=== PATIENT | female | born 1950 | race Caucasian/White ===

== ENCOUNTER 2018-10-08 06:33 | Emergency (ER) | payer OTHER, BC ==
--- NOTE | 2018-10-08 07:27 | ER ---
Nurse's Notes [facility] Name: Julia Freed Age: 68 yrs Sex: Female : 1950 Arrival Date: 10/08/2018 Time: 06:35 Bed 7 Private MD: Devang Campbell V Diagnosis: Nondisplaced fracture of fourth metatarsal bone, right foot Presentation: 10/08 06:44 Presenting complaint: Patient states: Slipped on water and twisted right ankle approx tl2 12 hours ago. Slight swelling and continued pain to right foot and ankle. Transition of care: patient was not received from another setting of care. Onset of symptoms was October 07, 2018 at 18:00. Risk Assessment: Do you want to hurt yourself or someone else? Patient reports no desire to harm self or others. Initial Sepsis Screen: Does the patient meet any 2 criteria? No. Patient's initial sepsis screen is negative. Does the patient have a suspected source of infection? No. Patient's initial sepsis screen is negative. Care prior to arrival: None. 06:44 Method Of Arrival: Wheelchair tl2 06:44 Acuity: CK 4 tl2 Historical: - Allergies: 06:46 Sulfa (Sulfonamide Antibiotics); tl2 06:46 Sudafed; tl2 - Home Meds: 06:46 Imitrex Oral [Active]; Clonazepam Oral [Active]; Zoloft Oral [Active]; Lamictal Oral tl2 [Active]; Bupropion Oral [Active]; Synthroid Oral [Active]; Cytomel Oral [Active]; - PMHx: 06:47 Hypertension; tl2 06:47 Pancreatitis; Depression; tl2 - PSHx: 06:46 Cholecystectomy; Joint replacement; Hysterectomy; tl2 - Immunization history:: Adult Immunizations up to date. - Social history:: Smoking status: Patient/guardian denies using tobacco. - Ebola Screening: : No symptoms or risks identified at this time. Screenin:47 Abuse screen: Denies threats or abuse. Nutritional screening: No deficits noted. tl2 Tuberculosis screening: No symptoms or risk factors identified. Fall Risk Gait- Impaired (20 pts.). Assessment: 06:52 General: Appears comfortable, Behavior is calm, cooperative. Pain: Complains of pain in tr5 right ankle and lateral aspect of right foot Pain does not radiate. Pain currently is 6 out of 10 on a pain scale. Pain began 1 day ago. Neuro: Level of Consciousness is awake, alert, obeys commands, Oriented to person, place, time, Media Production Manager are equal bilaterally Moves all extremities. Gait is. Cardiovascular: Heart tones present Bruits absent Capillary refill < 3 seconds Pulses are all present. Edema is absent. Respiratory: Airway is patent Trachea midline Respiratory effort is even, unlabored, Respiratory pattern is regular, symmetrical, Breath sounds are clear bilaterally. GI: Abdomen is round Bowel sounds present X 4 quads. Abd is soft and non tender. : No signs and/or symptoms were reported regarding the genitourinary system. EENT: No signs and/or symptoms were reported regarding the EENT system. Derm: Skin is intact, is healthy with good turgor. Musculoskeletal: Capillary refill < 3 seconds, Range of motion: intact in all extremities. Vital Signs: 06:46 BP 149 / 75; Pulse 103; Resp 18; Pulse Ox 96% on R/A; Weight 81.65 kg; Height 5 ft. 10 tl2 in. (177.80 cm); Pain 4/10; 06:46 Body Mass Index 25.83 (81.65 kg, 177.80 cm) tl2 ED Course: 06:35 Patient arrived in ED. ag5 06:36 Devang Campbell MD is Private Physician. ag5 06:36 [facility] jr8 06:36 Adam Tenorio MD is Attending Physician. jr8 06:45 Triage completed. tl2 06:46 Arm band placed on right wrist. tl2 06:47 Patient has correct armband on for positive identification. Bed in low position. Call tl2 light in reach. Side rails up X 1. 06:49 Bill Thorpe, RACHID is Primary Nurse. tr5 06:59 X-ray completed. Portable x-ray completed in exam room. Patient tolerated procedure jb2 well. 07:00 XRAY Foot RIGHT 3 View In Process Unspecified. EDMS 07:24 Aristides Plascencia MD is Referral Physician. jr8 Administered Medications: No medications were administered Outcome: 07:25 Discharge ordered by . jr8 07:51 Patient left the ED. ph Signatures: Dispatcher [employer] EDMS Saurabh Bland2 Kyrie Ulloa PA PA jr8 Capri nKox, RACHID RN ph Mckenzie Nunez RN RN tl2 Lester Elmore5 Bill Thorpe RN RN tr5
--- NOTE | 2018-10-08 07:27 | EDPHYS ---
Physician Documentation [facility] Name: Julia Freed Age: 68 yrs Sex: Female : 1950 Arrival Date: 10/08/2018 Time: 06:35 Bed 7 Private MD: Devang Campbell V ED Physician Adam Tenorio HPI: 10/08 07:15 This 68 yrs old Female presents to ER via Wheelchair with complaints of Fall jr8 Injury, Foot Injury. 07:15 Details of fall: The patient fell from an upright position, while standing. Details of jr8 fall: The patient fell from an upright position, due to wet surface. Onset: The symptoms/episode began/occurred suddenly, last night, at 18:00. Associated injuries: The patient sustained lateral aspect of right foot, contusion. Severity of symptoms: At their worst the symptoms were mild, in the emergency department the symptoms are unchanged. The patient has not experienced similar symptoms in the past. The patient has not recently seen a physician. slipped on wet surface and rolled right foot inwards. Historical: - Allergies: 06:46 Sulfa (Sulfonamide Antibiotics); tl2 06:46 Sudafed; tl2 - Home Meds: 06:46 Imitrex Oral [Active]; Clonazepam Oral [Active]; Zoloft Oral [Active]; Lamictal Oral tl2 [Active]; Bupropion Oral [Active]; Synthroid Oral [Active]; Cytomel Oral [Active]; - PMHx: 06:47 Hypertension; tl2 06:47 Pancreatitis; Depression; tl2 - PSHx: 06:46 Cholecystectomy; Joint replacement; Hysterectomy; tl2 - Immunization history:: Adult Immunizations up to date. - Social history:: Smoking status: Patient/guardian denies using tobacco. - Ebola Screening: : No symptoms or risks identified at this time. ROS: 07:15 Constitutional: Negative for fever, chills, and weight loss, Eyes: Negative for injury, jr8 pain, redness, and discharge, ENT: Negative for injury, pain, and discharge, Neck: Negative for injury, pain, and swelling, Cardiovascular: Negative for chest pain, palpitations, and edema, Respiratory: Negative for shortness of breath, cough, wheezing, and pleuritic chest pain, Abdomen/GI: Negative for abdominal pain, nausea, vomiting, diarrhea, and constipation, Back: Negative for injury and pain, Skin: Negative for injury, rash, and discoloration, Neuro: Negative for headache, weakness, numbness, tingling, and seizure. 07:15 MS/extremity: Positive for injury or acute deformity, pain, Negative for laceration, paresthesias, puncture, tingling. Exam: 07:15 Constitutional: This is a well developed, well nourished patient who is awake, alert, jr8 and in no acute distress. Head/Face: Normocephalic, atraumatic. Eyes: Pupils equal round and reactive to light, extra-ocular motions intact. Lids and lashes normal. Conjunctiva and sclera are non-icteric and not injected. Cornea within normal limits. Periorbital areas with no swelling, redness, or edema. Neck: Trachea midline, no thyromegaly or masses palpated, and no cervical lymphadenopathy. Supple, full range of motion without nuchal rigidity, or vertebral point tenderness. No Meningismus. Cardiovascular: Regular rate and rhythm with a normal S1 and S2. No gallops, murmurs, or rubs. Normal PMI, no JVD. No pulse deficits. Respiratory: Lungs have equal breath sounds bilaterally, clear to auscultation and percussion. No rales, rhonchi or wheezes noted. No increased work of breathing, no retractions or nasal flaring. Abdomen/GI: Soft, non-tender, with normal bowel sounds. No distension or tympany. No guarding or rebound. No evidence of tenderness throughout. Back: No spinal tenderness. No costovertebral tenderness. Full range of motion. Skin: Warm, dry with normal turgor. Normal color with no rashes, no lesions, and no evidence of cellulitis. Neuro: Awake and alert, GCS 15, oriented to person, place, time, and situation. Cranial nerves II-XII grossly intact. Motor strength 5/5 in all extremities. Sensory grossly intact. Cerebellar exam normal. Normal gait. 07:15 Musculoskeletal/extremity: Extremities: grossly normal except: noted in the right foot: contusion, tenderness, ROM: intact in all extremities, Circulation is intact in all extremities. Pulses: noted to be 2+ in the right dorsalis pedis artery and left dorsalis pedis artery, Sensation intact. tenderness to lateral right foot, contusion to dorsal right foot over 3rd-5th metatarsals. Vital Signs: 06:46 BP 149 / 75; Pulse 103; Resp 18; Pulse Ox 96% on R/A; Weight 81.65 kg; Height 5 ft. 10 tl2 in. (177.80 cm); Pain 4/10; 06:46 Body Mass Index 25.83 (81.65 kg, 177.80 cm) tl2 Procedures: 07:23 Splinting: Splint applied to right foot using Ortho shoe. applied by nurse. Examined by jr8 id, post splint application: neurovascular intact, 2+ distal pulses palpable, brisk capillary refill noted, Patient tolerated well. MDM: 06:40 Patient medically screened. jr8 07:23 Data reviewed: vital signs, nurses notes, radiologic studies, plain films. Data jr8 interpreted: Pulse oximetry: on room air is 96 %. Interpretation: normal. Counseling: I had a detailed discussion with the patient and/or guardian regarding: the historical points, exam findings, and any diagnostic results supporting the discharge/admit diagnosis, radiology results, the need for outpatient follow up, a orthopedic surgeon, to return to the emergency department if symptoms worsen or persist or if there are any questions or concerns that arise at home. 10/08 06:47 Order name: XRAY Foot RIGHT 3 View jr8 10/08 07:15 Order name: Ortho shoe jr8 Administered Medications: No medications were administered Disposition: 19:04 Co-signature as Attending Physician, Adam Tenorio MD. betsy Disposition: 10/08/18 07:25 Discharged to Home. Impression: Nondisplaced fracture of fourth metatarsal bone, right foot. - Condition is Stable. - Discharge Instructions: Metatarsal Fracture. - Prescriptions for Ibuprofen 800 mg Oral Tablet - take 1 tablet by ORAL route every 12 hours As needed take with food; 20 tablet. - Medication Reconciliation Form, Thank You Letter, Antibiotic Education, Prescription Opioid Use form. - Follow up: Aristides Plascencia MD; When: 2 - 3 days; Reason: Recheck today's complaints, Continuance of care, Re-evaluation by your physician. - Problem is new. - Symptoms have improved. Signatures: Dispatcher [employer] EDMS Adam Tenorio MD MD pkKyrie Simmons PA PA jr Capri Knox RN RN ph Mckenzie Nunez RN RN tl2 Corrections: (The following items were deleted from the chart) 07:51 07:25 10/08/2018 07:25 Discharged to Home. Impression: Nondisplaced fracture of fourth ph metatarsal bone, right foot. Condition is Stable. Forms are Medication Reconciliation Form, Thank You Letter, Antibiotic Education, Prescription Opioid Use. Follow up: Aristides Plascencia; When: 2 - 3 days; Reason: Recheck today's complaints, Continuance of care, Re-evaluation by your physician. Problem is new. Symptoms have improved. jr8
[2018-10-08 08:00] VITALS: BP 149/75; O2SAT 96
--- NOTE | 2018-10-08 08:42 | RAD REPORT ---
EXAM DESCRIPTION: RAD - Foot Right 3 View - 10/08/2018 7:03 am CLINICAL HISTORY: Right foot pain status post injury FINDINGS: Mildly displaced fracture involves the fourth metatarsal neck. No dislocation Hallux valgus deformity
== END 2018-10-08 07:51 | disposition home or self-care (01) ==
LOC: ER 06:33
DX: S92.344A Nondisplaced fracture of fourth metatarsal bone, right foot, initial encounter for closed fracture (principal); W01.0XXA Fall on same level from slipping, tripping and stumbling without subsequent striking against object, initial encounter; I10 Essential (primary) hypertension; F32.9 Major depressive disorder, single episode, unspecified; Z88.2 Allergy status to sulfonamides; Z88.8 Allergy status to other drugs, medicaments and biological substances
CPT/HCPCS: 99282

== ENCOUNTER 2020-10-26 07:23 | Day surgery (SDC) | payer OTHER, BC ==
--- NOTE | 2020-10-25 10:26 | RAD REPORT ---
EXAM DESCRIPTION: RAD - Chest Pa And Lat (2 Views) - 10/25/2020 10:18 am CLINICAL HISTORY: PRE OP COMPARISON: Chest Pa And Lat (2 Views) dated 03/23/2017 FINDINGS: No evidence of edema or pneumonia. The heart size is within normal limits.No acute osseous abnormality. No significant pleural effusions or pneumothorax. Calcified right lower lobe nodules. IMPRESSION: No acute cardiopulmonary disease.
[2020-10-25 11:11] LABS: Absolute Lymphocytes (CBC) 1.5 K/uL (0.7-4.9); Basophils % 0.8 % (0-1.3); Hematocrit 41.3 % (36.0-45.0); Lymphocytes % 22.6 % (15.3-44.8); MPV 7.7 fL (7.6-11.3); RBC Red Blood Cell Count 4.61 M/uL (3.86-4.86)
--- NOTE | 2020-10-25 11:16 | EKG ---
Test Date: 2020-10-25 Test Time: 08:44:04 Care Trainer: VANI MEASUREMENT RESULTS: Intervals: Rate: 78 WA: 168 QRSD: 88 QT: 382 QTc: 435 [place]: P: 50 WA: 168 QRS: 34 T: 57 INTERPRETIVE STATEMENTS: Normal sinus rhythm Normal ECG Compared to ECG 03/23/2017 13:58:50 No significant changes Electronically Signed On 10-25-20 11:16:13 CDT by Dagoberto Campuzano
[2020-10-25 11:25] LABS: Potassium 4.2 mmol/L (3.5-5.1)
[2020-10-26] MEDS: BUPIVACAINE 0.5% PF 10 ML VIAL ONE ×2 (08:12→09:37)
[2020-10-26] MEDS: CEFAZOLIN/SWI 1gm 1 GM/10 ML SYR ONE ×2 (08:13→09:20)
[2020-10-26] MEDS: Ringers Lactate 1,000 ML IV ONE ×2 (08:13→09:15)
[2020-10-26] MEDS ORDERED: propofoL 200 MG/20 ML VIAL IV ONE (08:55)
[2020-10-26] MEDS ORDERED: FENTANYL CITR 100 MCG/2 ML ONE (08:56)
[2020-10-26] MEDS ORDERED: MIDAZOLAM HCL 2 MG/2 ML INJ ONE (08:56)
[2020-10-26] MEDS ORDERED: ONDANSETRON 4 MG/2 ML VIAL ONE (08:57)
[2020-10-26] MEDS ORDERED: LIDOCAINE 2% MPF 5 ML VIAL ONE ×2 (08:57)
[2020-10-26] MEDS ORDERED: dexAMETHasone 10 MG/ML VIAL ONE (09:41)
--- NOTE | 2020-10-26 10:26 | OP ---
Date of Procedure: 10/26/2020 Surgeon: Liam Garrett MD Preoperative Diagnosis: Left knee rash with wound, nonhealing. Postoperative Diagnosis: Left knee rash with wound, nonhealing. Procedure: Excisional biopsy of left knee rash nonhealing wound, 3 x 1 cm with layered closure. Estimated Blood Loss: Minimal. Specimen: Rash and nonhealing wound. Findings: As above. Anesthesia: General. Complications: None Disposition: The patient tolerated the procedure in stable condition and taken to Recovery in good g eneral condition. Procedure In Detail: The patient was brought to the OR and placed in supine position. General anest hesia begun. The patient was prepped and draped in the usual sterile fashion. Marcaine 0.5% infiltr ated locally. The patient had 2 areas of nonhealing wound that had healed up significantly since I s aw her in the office, where the smaller wound was it. There was a rash around it as well. So, we ma de a 3 x 1 cm incision to excise the wound as well as to do an excisional biopsy of the rash and then sent to Pathology as specimen. Wound irrigated. Bleeding controlled with cautery. Flaps created a nd 3-0 chromic used to approximate the subcutaneous tissue and 4-0 nylon used to close the skin. Star rile dressing applied. The patient was awakened and taken to Recovery in good general condition. Discharge Note: The patient will go to day surgery and home when stable. Disposition: Home. Condition: Stable. Discharge Instructions: Resume home medications and diet. Activity as tolerated. No heavy lifting. Remove outer dressing in the morning. Shower. Keep wound clean and dry. Wound care as ordered. Follow up in my office in 1 week. Call for appointment. Tylenol No.3 one tablet p.o. q.4 p.r.n. sean n, Keflex 500 mg p.o. q.6. /MODL Voice ID: [id number] Report ID: [id number]
[2020-10-26 10:33] VITALS: O2SAT 99
[2020-10-26] MEDS ORDERED: TRAMADOL 37.5mg/APAP 325mg PER TAB ONE (11:07)
[2020-10-26 12:57] VITALS: BP 146/90; TEMP 97.6
== END 2020-10-26 11:30 | disposition home or self-care (01) ==
LOC: OR 07:23
PROVIDERS: ATTEND Surgery
PROC: 0JBP0ZZ Excision of Left Lower Leg Subcutaneous Tissue and Fascia, Open Approach (ICD-10-PCS; principal; 2020-10-26 08:30)
DX: L97.821 Non-pressure chronic ulcer of other part of left lower leg limited to breakdown of skin (principal); R21 Rash and other nonspecific skin eruption; Z20.822 Contact with and (suspected) exposure to COVID-19
CPT/HCPCS: 93005; 85025; 80048; 36415; 88305; 71046; 11403; U0003; J2704; J2250; J3010; J1100; J0690; J7120; J2405

== ENCOUNTER → 2023-04-11 | Day surgery (SDC) | payer OTHER, BC ==
[~2023-04-11] MED LIST: Zoledronic Acid/Mannitol/Water 5 MG/100 ML INFUS.BOT IV ONE
[2023-04-11 10:21] VITALS: BP 139/58; TEMP 97.5; O2SAT 95; BMI 26.2
== END ==
LOC: DS 08:53
PROVIDERS: ATTEND Internal Medicine
DX: M81.0 Age-related osteoporosis without current pathological fracture (principal); R13.10 Dysphagia, unspecified
CPT/HCPCS: 96365; J3489